=== PATIENT | female | born 1950 | race Caucasian/White ===

== ENCOUNTER → 2017-04-23 | Outpatient (REF) | payer OTHER ==
[~2017-04-23] MED LIST: AMIT8CAP4 PO; ASPI1TAB PO; ATEN25TA PO; BUPR1TAB17 PO; CALCIUM D3 PO; CLON0.5T PO; OMEP40CA2 PO; REST0.05 OP; VITA-112 PO; XYZA5TAB2 PO
[2017-04-23 18:45] LABS: PERCENT SATURATION 31.3 % (13.2-37.4)
== END ==
LOC: M LAB REF 16:25
PROVIDERS: ATTEND Internal Medicine
DX: R42 Dizziness and giddiness (principal)

== ENCOUNTER → 2017-08-26 | Outpatient (REF) | payer OTHER ==
[~2017-08-26] MED LIST changes: -BUPR1TAB17 PO; +BUPR1TAB53 PO
== END ==
LOC: M LAB REF 13:03
PROVIDERS: ATTEND Internal Medicine
DX: H16.209 Unspecified keratoconjunctivitis, unspecified eye (principal); G60.9 Hereditary and idiopathic neuropathy, unspecified

== ENCOUNTER → 2017-08-30 | Outpatient (CLI) | payer OTHER ==
[~2017-08-30] MED LIST changes: +METHACHOLINE KIT (J7674) INH ONE
--- NOTE | 2017-08-30 17:16 | PFTRPT ---
Tech: Jose Luis SHIRLEY RRT Age: 66 Sex: Female Race: Height: 65.00 Inches Weight: 144.00 Lbs BSA: 1.72 Diagnosis: R06.02 METHACHOLINE CHALLENGE REPORT: ORDERING PROVIDER: Symone Villegas DO DATE OF SERVICE: 08/30/17 INTERPRETATION: The study was of excellent technical quality. Under protocol, methacholine was administered. At a dose of 10 mg (63.875 CDUs), a 26% decline in the FEV1 was noted. The PC20 of 4.7 is significant. Flow rates returned to baseline post bronchodilator administration. IMPRESSION: Positive methacholine challenge study. MTDD
== END ==
LOC: M CARPUL 16:11
PROVIDERS: ATTEND Internal Medicine
DX: R06.02 Shortness of breath (principal)
CPT/HCPCS: 94070; J7674

== ENCOUNTER → 2017-09-07 | Outpatient (CLI) | payer OTHER ==
[~2017-09-07] MED LIST changes: -METHACHOLINE KIT (J7674) INH ONE
--- NOTE | 2017-09-07 16:17 | REP ---
LEFT KNEE, FIVE VIEWS: HISTORY: Pain. There is no acute fracture or dislocation. The joint spaces are normal in appearance. Impression: There is no acute fracture or dislocation. Signed by Virgil Wyman MD 09/07/2017 04:18 P
== END ==
LOC: M WUC 12:17
PROVIDERS: ATTEND Physician Assistant
DX: M25.569 Pain in unspecified knee (principal)

== ENCOUNTER 2018-11-15 20:11 | Emergency (ER) | payer MEDICARE, OTHER ==
[~2018-11-15] VITALS: Ht 165.1 cm; Wt 68.6 kg
[~2018-11-15 20:11] MED LIST changes: -CLON0.5T PO; +CLON0.5T8 PO
[2018-11-15] MEDS ORDERED: LABETALOL HCL 100 MG/20 ML VIAL IV STA (20:33)
[2018-11-15] MEDS ORDERED: NS 1,000 ML IV SCH (20:33)
[2018-11-15] MEDS ORDERED: hydroCHLOROthiazide 12.5 MG CAPSULE PO ONE (20:45)
[2018-11-15] MEDS ORDERED: ASPIRIN 81 MG CHEW TABLET PO ONE (20:45)
[2018-11-15 20:56] VITALS: BP 178/84
[2018-11-15 21:33] LABS: BASO % 0.6 % (0.0-1.0); EOS # 0.2 10^3/uL (0.0-0.50); EOS % 3.7 % (0.0-3.0); HEMATOCRIT 37.7 % (36.0-47.0); HEMOGLOBIN 11.8 g/dl (12.0-15.5); LYMPH % 31.7 % (24.0-44.0); MEAN CORPUSCULAR HEMOGLOBIN 28.6 pg (27.0-33.0); MEAN CORPUSCULAR HGB CONC 31.3 g/dl (32.0-36.5); MEAN CORPUSCULAR VOLUME 91.5 fl (80.0-96.0); MONO # 0.6 10^3/uL (0.0-0.8); MONO % 9.5 % (0.0-5.0); NEUTROPHILS # 3.4 10^3/uL (1.8-7.7); NEUTROPHILS % 54.3 % (36.0-66.0); PLATELET COUNT, AUTOMATED 323 10^3/uL (150-450); RED BLOOD COUNT 4.12 10^6/uL (4.00-5.40); WHITE BLOOD COUNT 6.2 10^3/uL (4.0-10.0)
[2018-11-15 21:47] LABS: INR 0.94; PROTHROMBIN TIME 12.7 SECONDS (12.1-14.4)
[2018-11-15 21:55] VITALS: BP 165/86
[2018-11-15 22:07] LABS: ALBUMIN 4.1 GM/DL (3.2-5.2); ALT/SGPT 25 U/L (12-78); BILIRUBIN,DIRECT < 0.1 MG/DL (0.0-0.2); BILIRUBIN,TOTAL 0.3 MG/DL (0.2-1.0); BLOOD UREA NITROGEN 13 MG/DL (7-18); CALCIUM LEVEL 8.6 MG/DL (8.8-10.2); CARBON DIOXIDE LEVEL 29 MEQ/L (21-32); CHLORIDE LEVEL 106 MEQ/L (98-107); CK-MB VALUE MASS < 1.0 NG/ML (<3.6); CPK CREATINE PHOSPHOKINASE 75 U/L (26-192); CREATININE FOR GFR 1.17 MG/DL (0.55-1.30); FREE T4 0.99 NG/DL (0.76-1.46); GLOMERULAR FILTRATION RATE 49.4 (>45); GLUCOSE, FASTING 92 MG/DL (70-100); MB/CK RELATIVE INDEX 1.33 (< OR =4); POTASSIUM SERUM 4.1 MEQ/L (3.5-5.1); SODIUM LEVEL 143 MEQ/L (136-145); TOTAL PROTEIN 7.6 GM/DL (6.4-8.2); TROPONIN I < 0.02 NG/ML (< 0.10)
[2018-11-15] MEDS ORDERED: HYDR12.55 PO (22:33)
--- NOTE | 2018-11-16 03:46 | REP ---
Clinical: Acute chest pain . Comparison: 01/21/2014 . Findings: The mediastinum and cardiac silhouette are stable and within normal limits for portable technique. The lung beckford are clear without acute consolidation, effusion, or pneumothorax. Skeletal structures are intact. Impression: No acute cardiopulmonary process appreciated. Electronically Signed by James Bowman MD 11/16/2018 03:37 A
--- NOTE | 2018-11-16 10:27 | ECGEPIP ---
Stationary ECG Study [facility] - ED Test Date: 2018-11-15 Pat Name: JASMINE BOATENG Department: Room: - Gender: F Avian Keeper: : 1950 Requested By: IESHA MURPHY Order Number: [id number] Reading MD: Janay Hong Measurements Intervals [place] Rate: 62 P: 43 [place]: 222 QRS: -11 QRSD: 93 T: 47 QT: 429 QTc: 437 Interpretive Statements SINUS RHYTHM WITH MARKED SINUS ARRHYTHMIA WITH FIRST DEGREE AV BLOCK BASELINE ARTIFACT LIMITS INTERPRETATION SEPTAL MYOCARDIAL INFARCTION, PROBABLY OLD Electronically Signed On 11-16-2018 10:26:53 EST by Janay Hong
== END 2018-11-15 22:40 | disposition home or self-care (01) ==
LOC: M ED 20:11
DX: I49.3 Ventricular premature depolarization (principal); I10 Essential (primary) hypertension; I44.0 Atrioventricular block, first degree; G43.909 Migraine, unspecified, not intractable, without status migrainosus; J45.909 Unspecified asthma, uncomplicated; Z82.49 Family history of ischemic heart disease and other diseases of the circulatory system; Z79.82 Long term (current) use of aspirin; Z79.899 Other long term (current) drug therapy; Z88.1 Allergy status to other antibiotic agents

== ENCOUNTER → 2018-12-19 | Outpatient (REF) | payer MEDICARE, OTHER ==
[~2018-12-19] MED LIST changes: +HYDR12.55 PO
[2018-12-20 11:38] LABS: AMORPHOUS SEDIMENT MODERATE (NEGATIVE); BACTERIA, URINE AUTO 1+ (NEGATIVE); CALCIUM OXALATE CRYSTALS SMALL; GRANULAR CAST, URINE AUTO 3 /LPF; MUCUS, URINE SMALL (NEGATIVE); RBC, URINE AUTO 1 /HPF (0-3); SQUAMOUS EPITHELIAL CELL UR AU 4 /HPF (0-6); WBC, URINE AUTO 16 /HPF (0-3)
== END ==
LOC: M SMT 10:52
PROVIDERS: ATTEND Specialist
DX: N93.9 Abnormal uterine and vaginal bleeding, unspecified (principal)
CPT/HCPCS: 81015; 87086; G0463

== ENCOUNTER → 2019-05-23 | Outpatient (REF) | payer OTHER, MEDICARE ==
[~2019-05-23] MED LIST changes: -ASPI1TAB PO; +ASPI81TA26 PO
[2019-05-23 16:30] LABS: INR 0.96; PARTIAL THROMBOPLASTIN TIME 28.6 SECONDS (25.0-38.4); PROTHROMBIN TIME 12.5 SECONDS (11.8-14.0)
== END ==
LOC: M LABDRAW1 15:29
PROVIDERS: ATTEND Physician Assistant
DX: Z01.812 Encounter for preprocedural laboratory examination (principal)

== ENCOUNTER → 2020-06-04 | Outpatient (REF) | payer MEDICARE, OTHER ==
[~2020-06-04] MED LIST changes: +B-650TAB2 PO; +BISO10TA14 PO; +BUPR-69 PO; +BUPR1TAB52 PO; +BUSP15TA47 PO; +CALCIUM/VITAMIN D PO; +CLON0.5T2 PO; -CLON0.5T8 PO; +D31000TA2 PO; +LEVOTAB10 PO; +NORV5TAB PO; -OMEP40CA2 PO; +OMEP40CA97 PO; +SYST0.4D2 OU
[2020-06-04 16:41] LABS: PERCENT SATURATION 20.8 % (13.2-45.0)
== END ==
LOC: M LAB REF 12:19
PROVIDERS: ATTEND Internal Medicine
DX: D64.9 Anemia, unspecified (principal)

== ENCOUNTER 2020-08-02 22:17 | Inpatient (IN) | payer MEDICARE, OTHER ==
[~2020-08-02] VITALS: Ht 165.1 cm; Wt 67.5 kg
[~2020-08-02 22:17] MED LIST changes: -B-650TAB2 PO; -BISO10TA14 PO; -BUPR-69 PO; -BUPR1TAB52 PO; -BUSP15TA47 PO; -CALCIUM/VITAMIN D PO; -D31000TA2 PO; -LEVOTAB10 PO; -NORV5TAB PO; -SYST0.4D2 OU
[2020-08-02] MEDS ORDERED: LABETALOL 100MG/20ML VIAL IV STA ×2 (22:52→23:51)
[2020-08-02] MEDS ORDERED: BUSP15TA47 PO (22:59)
[2020-08-02 23:31] LABS: BASO % 0.3 % (0.0-1.0); EOS # 0.1 10^3/uL (0.0-0.5); EOS % 2.1 % (0.0-3.0); HEMATOCRIT 35.2 % (36.0-47.0); HEMOGLOBIN 11.1 g/dl (12.0-15.5); LYMPH % 34.1 % (24.0-44.0); MEAN CORPUSCULAR HEMOGLOBIN 29.7 pg (27.0-33.0); MEAN CORPUSCULAR HGB CONC 31.5 g/dl (32.0-36.5); MEAN CORPUSCULAR VOLUME 94.1 fl (80.0-96.0); MONO # 0.6 10^3/uL (0.0-0.8); MONO % 9.7 % (0.0-5.0); NEUTROPHILS # 3.1 10^3/uL (1.5-8.5); NEUTROPHILS % 53.6 % (36.0-66.0); PLATELET COUNT, AUTOMATED 291 10^3/uL (150-450); RED BLOOD COUNT 3.74 10^6/uL (4.00-5.40); WHITE BLOOD COUNT 5.8 10^3/uL (4.0-10.0)
--- NOTE | 2020-08-02 23:47 | REPVR ---
PROCEDURE INFORMATION: Exam: CT Head Without Contrast Exam date and time: 08/02/2020 10:52 PM Age: 69 years old Clinical indication: Pain; Headache not specified; Additional info: HTN headache TECHNIQUE: Imaging protocol: Computed tomography of the head without contrast. Radiation optimization: All CT scans at this facility use at least one of these dose optimization techniques: automated exposure control; mA and/or kV adjustment per patient size (includes targeted exams where dose is matched to clinical indication); or iterative reconstruction. COMPARISON: CT Head without contrast 06/06/2016 8:29 AM FINDINGS: Brain: Normal. No hemorrhage. Unremarkable white matter. No mass effect. Ventricles: Normal. No ventriculomegaly. Bones/joints: Unremarkable. No acute fracture. Sinuses: Visualized sinuses are unremarkable. No fluid levels. Mastoid air cells: Visualized mastoid air cells are well aerated. Soft tissues: Unremarkable. IMPRESSION: Negative noncontrast head CT without change from 06/06/2016. Electronically signed by: Romie Garsia On 08/02/2020 23:47:32 PM
[2020-08-02 23:52] LABS: INR 0.9; PROTHROMBIN TIME 12.4 SECONDS (11.8-14.0)
[2020-08-03 00:04] LABS: ALBUMIN 3.8 GM/DL (3.2-5.2); ALT/SGPT 22 U/L (12-78); BILIRUBIN,DIRECT < 0.1 MG/DL (0.0-0.2); BILIRUBIN,TOTAL 0.3 MG/DL (0.2-1.0); BLOOD UREA NITROGEN 19 MG/DL (7-18); CALCIUM LEVEL 9.1 MG/DL (8.8-10.2); CARBON DIOXIDE LEVEL 31 MEQ/L (21-32); CHLORIDE LEVEL 107 MEQ/L (98-107); CK-MB VALUE MASS 1.5 NG/ML (<3.6); CPK CREATINE PHOSPHOKINASE 76 U/L (26-192); CREATININE FOR GFR 1.34 MG/DL (0.55-1.30); FREE T4 0.92 NG/DL (0.76-1.46); GLUCOSE, FASTING 114 MG/DL (70-100); MB/CK RELATIVE INDEX 1.97 (< OR =4); POTASSIUM SERUM 3.8 MEQ/L (3.5-5.1); SODIUM LEVEL 142 MEQ/L (136-145); TOTAL PROTEIN 7.1 GM/DL (6.4-8.2); TROPONIN I < 0.02 NG/ML (< 0.10)
[2020-08-03] MEDS ORDERED: LABETALOL 100MG/20ML VIAL IV STA (00:26)
[2020-08-03] MEDS ORDERED: LABETALOL 100 MG TAB PO ONE (00:30)
--- NOTE | 2020-08-03 00:31 | REPVR ---
PROCEDURE INFORMATION: Exam: XR Chest, 2 Views Exam date and time: 08/02/2020 12:24 AM Age: 69 years old Clinical indication: Other: Hypertension TECHNIQUE: Imaging protocol: XR of the chest Views: 2 views. COMPARISON: CR PORTABLE CHEST X-RAY 11/15/2018 9:18 PM FINDINGS: Lungs: Unremarkable. No consolidation. Pleural space: Unremarkable. No pleural effusion. No pneumothorax. Heart/Mediastinum: Unremarkable. No cardiomegaly. Bones/joints: Unremarkable. IMPRESSION: Negative chest without significant change from 11/15/2018. Electronically signed by: Romie Garsia On 08/03/2020 00:30:53 AM
[2020-08-03 00:49] VITALS: BP 198/92
[2020-08-03] MEDS ORDERED: MAALOX 30 ML SUSP *UDC PO PRN (01:30)
[2020-08-03] MEDS ORDERED: ACETAMINOPHEN TAB 650MG DOSE (2X325MG) PO PRN (01:30)
[2020-08-03] MEDS ORDERED: niCARdipine IV 40 MG in IV 1 EA IV SCH (01:30)
[2020-08-03] MEDS ORDERED: MOM 30ML SUSPENSION UDC PO PRN (01:30)
[2020-08-03] MEDS ORDERED: BUPR-69 PO (01:52)
[2020-08-03] MEDS ORDERED: BISO10TA14 PO (01:52)
[2020-08-03] MEDS ORDERED: CALCIUM/VITAMIN D PO (01:52)
[2020-08-03] MEDS ORDERED: SYST0.4D2 OU (01:52)
[2020-08-03] MEDS ORDERED: LEVOTAB10 PO (01:52)
[2020-08-03] MEDS ORDERED: B-650TAB2 PO (01:52)
[2020-08-03] MEDS ORDERED: D31000TA2 PO (01:55)
[2020-08-03] MEDS ORDERED: BUPR1TAB52 PO (01:57)
[2020-08-03] MEDS ORDERED: LACRILUBE (AKWA TEARS) OPHTH OINT 3.5 GM OU PRN (02:15)
[2020-08-03] MEDS ORDERED: AZELASTINE 137MCG NASAL SPY 30 ML (ASTELIN) PRN (02:15)
--- NOTE | 2020-08-03 03:43 | HPEPDOC ---
General Date of Admission Aug 03, 2020 at 01:17 Date of Service: Aug 03, 2020 Chief Complaint elevated blood pressure Timing/Duration: Day(s) (4-5) Associated Symptoms: Other (Feeling warm and right thigh numbness) History of Present Illness Patient is a 69 year female with PMH of HTN presented to [facility] ER d/t 4-5 days of HTN reported to be around 190s/90s. She has a hx of HTN that she reported to be usually around 150s/70-90s. She went to her PCP today and was started on Lortartan today and had increased Losartan dose today, deniess stopping any anti -HTN meds recently. In the ER, she was noted to have BP 243/148 with SBP continues to be >200 despite receiving several IV labetalol in ER. Patient reported that she has been feeling sweaty for days and reported feeling hot flashes, denies any Chest pain, palpitation, dyspnea. Denies any facial droo ping, dysphagia, or extremity weakness. She reported oophrectomy with uterus removal years ago. Reported 9lb weight loss over the past year but no sudden weight loss that is out of proportion. Reported right thigh numbness which she is unable to report the duration. Patient reported no imaging on her kidney for her BP workup prior. Home Medications Scheduled Amlodipine Besylate (Norvasc) 5 Mg Tablet, 1 TAB PO DAILY Bisoprolol Fumarate (Bisoprolol Fumarate) 10 Mg Tablet, 10 MG PO DAILY, (Reported) Bupropion HCl (Bupropion HCl Sr) 100 Mg Tab.sr.12h, 100 MG PO BID, (Reported) Buspirone HCl (Buspirone HCl) 15 Mg Tablet, 15 MG PO BID, (Reported) Cholecalciferol (Vitamin D3) (Vitamin D3) 1,000 Unit Tablet, 1,000 UNITS PO DAILY, (Reported) Clonazepam (Clonazepam) 0.5 Mg Tab, 0.5 MG PO DAILY, (Reported) USES PRN FOR SLEEP Omeprazole (Omeprazole) 40 Mg Cap, 40 MG PO DAILY, (Reported) Propylene Glycol/Peg 400 (Systane Gel Eye Drops) 10 Ml Drops.gel, 1 CUATE OU QPM, (Reported) Pyridoxine HCl (Vitamin B6) (Vitamin B-6) 50 Mg Tablet, 50 MG PO DAILY, (Reported) UNSURE OF DOSAGE [Calcium/Vitamin D] , 1 TAB PO DAILY, (Reported) UNSURE OF DOSAGE Scheduled PRN Levocetirizine Dihydrochloride (Levocetirizine Dihydrochloride) 5 Mg Tablet, 5 MG PO QPM PRN for CONGESTION, (Reported) Allergies Coded Allergies: azithromycin (Unverified Allergy, Unknown, 08/02/20) cyclobenzaprine (Unverified Allergy, Unknown, 08/02/20) Past Medical History Medical History Seasonal allergies History of migraine headaches HSV HTN Hematuria Surgical History HUSSEIN/BSO Family History Father:CA prostate, HTN Mother: HTN Social History * Smoker: Denies A-FIB/CHADSVASC A-FIB History Current/History of A-Fib/PAF?: No Review of Systems Constitutional: Reports: Weight Loss (slow weight loss reported to be proportional to diet change), Other (Pos for hot flashes and sweating. Denies headache); Denies: Chills, Fever Pulmonary: Denies: Dyspnea Cardiovascular: Denies: Chest Pain, Palpitations Gastrointestinal: Denies: Vomiting, Abdominal Pain Neurological: Reports: Numbness (right thigh numbness); Denies: Weakness, Incoordination, Change in speech, Confusion Psych: Reports: Anxiety Physical Examination General Exam: Positive: Alert, Cooperative, No Acute Distress; Negative: Mild Distress Eye Exam: Positive: Conjunctiva & lids normal, EOMI, Other Eye Symptoms (Bilateral pupil round and equal); Negative: Sclera icteric ENT Exam: Positive: Atraumatic, Mucous membr. moist/pink, Pharynx Normal, To ngue Midline, Nares Patent Neck Exam: Positive: Supple Chest Exam: Positive: Clear to auscultation, Normal air movement; Negative: Rales, Rhonchi, Wheezing Heart Exam: Positive: Rate Normal, Regular Rhythm, Normal S1, Normal S2; Negative: Murmurs Abdomen Exam: Positive: Normal bowel sounds, Soft; Negative: Tenderness Extremity Exam: Negative: Edema, Swelling Skin Exam: Positive: Nl turgor and temperature Neuro Exam: Positive: Normal Speech, Strength at 5/5 X4 ext, Normal Tone, Sensation Intact, Cranial Nerves 3-12 NL, Other (No numbness or tingling elicited by touch) Psych Exam: Positive: Mental status NL, Anxiety (mild), Memory Intact, Oriented x 3 Vital Signs Vital Signs Date Time Temp Pulse Resp B/P (MAP) Pulse Ox O2 Delivery O2 Flow Rate FiO2 08/03/20 03:00 86 12 148/78 (101) 99 Room Air 08/02/20 22:18 98.3 Laboratory Data Labs 24H Laboratory Tests 2 08/02/20 23:08: Immature Granulocyte % (Auto) 0.2, Neutrophils (%) (Auto) 53.6, Lymphocytes (%) (Auto) 34.1, Monocytes (%) (Auto) 9.7H, Eosinophils (%) (Auto) 2.1, Basophils (%) (Auto) 0.3, Neutrophils # (Auto) 3.1, Lymphocytes # (Auto) 2.0, Monocytes # (Auto) 0.6, Eosinophils # (Auto) 0.1, Basophils # (Auto) 0.0, Nucleated Red Blood Cells % (auto) 0.0, Prothrombin Time 12.4, Prothromb Time International Ratio 0.90, Activated Partial Thromboplast Time 28.0, Anion Gap 4L, Glomerular Filtration Rate 42.0L, Calcium Level 9.1, Total Bilirubin 0.3, Direct Bilirubin < 0.1, Aspartate Amino Transf (AST/SGOT) 15, Alanine Aminotransferase (ALT/SGPT) 22, Alkaline Phosphatase 99, Total Creatine Kinase 76, Creatine Kinase MB 1.5, Creatine Kinase MB Relative Index 1.97, Troponin I < 0.02, Total Protein 7.1, Albumin 3.8, Albumin/Globulin Ratio 1.2, Thyroid Stimulating Hormone (TSH) 2.540, Free Thyroxine 0.92 CBC/BMP Laboratory Tests 08/02/20 23:08 Assessment/Plan 1. Hypertensive emergency with end organ damage: NANO, r/o stroke. Right thigh numbness. Head CT and CXR showed no acute changes. MRI/MRA STAT ordered. If ischemic stroke is present, need to allow permissive HTN>220/120 for at 24 hrs. CN2-12 intact. Strength+5/5 in all 4 extremities. Neuro checks Q4H, vital signs. Pt will be admitted to ICU for close observation IV nicardipine drip. Fall/seizure precaution. Renal doppler US to investigate underlying cause of hypertension. 2. Anemia. Hg=11.1, normocytic. Recent iron studies from 05/2020 showed no gross abnormalities. B12 from 05/2020 was wnl. RBC folate was ordered. 3. NANO, likely 2/2 to hypertensive emergency. COnt to f/u BMP. BP control. 4. Depression/anxiety. Hold home buspirone/buproprion/clonzepam for now. Seizure precaution 5. GERD. Cont home med Omeprazole. DVT prophylaxis: lovenox SC Plan / VTE VTE Prophylaxis Ordered?: Yes GME ATTESTATION GME ATTESTATION My faculty preceptor for this patient encounter was physically present during the encounter and was fully available. All aspects of the patient interview, examination, medical decision making process, and medical care plan development were reviewed and approved by the faculty preceptor. The faculty preceptor is aware and concurs with the plan as stated in the body of this note and will attest to such by his/her cosignature. ATTENDING NOTE is a 69 yr old w a hx of Asthma & HTN who came to the hospital bc her SBP was >200 despite having losartan added to her atenolol yesterday. She is c/o a REINOSO but denies any other symptoms; she will be admitted for management of HTN Urgency. rest per 's H&P above ALEXSANDRA ALFORD DO Aug 03, 2020 03:42 JEN MANCILLA MD Aug 03, 2020 06:06
--- NOTE | 2020-08-03 05:31 | REPVR ---
PROCEDURE INFORMATION: Exam: MR Head Without Contrast Exam date and time: 08/03/2020 1:41 AM Age: 69 years old Clinical indication: Numbness / parasthesia; Right; Patient HX: Headache, high BP; Additional info: Sbp>200, right thigh tingling TECHNIQUE: Imaging protocol: MR of the head without contrast. COMPARISON: CT Head without contrast 08/02/2020 11:22 PM FINDINGS: Brain: There is a nonspecific tiny focus of white matter T2 hyperintensity in the left frontal lobe measuring 3 mm. No focal abnormality seen in the gradient echo to suggest intracranial bleed. No abnormal restricted diffusion seen to suggest acute infarcts. Ventricles: Normal. No ventriculomegaly. Bones/joints: Unremarkable. Sinuses: Normal as visualized. No acute sinusitis. Mastoid air cells: Normal as visualized. No mastoid effusion. Orbits: Unremarkable. Soft tissues: Unremarkable. IMPRESSION: 1. No MRI evidence of acute infarct. 2. Nonspecific single 3 mm focus of T2 white matter hyperintensity in the left frontal lobe with no restricted diffusion could represent focus of white matter demyelination. Electronically signed by: Jl Malin On 08/03/2020 05:30:46 AM
--- NOTE | 2020-08-03 05:38 | REPVR ---
PROCEDURE INFORMATION: Exam: MR Angiogram Head Without Contrast, Arteries Exam date and time: 08/03/2020 1:41 AM Age: 69 years old Clinical indication: Numbness; Patient HX: Headache, high BP; Additional info: Sbp>200, right thigh tingling TECHNIQUE: Imaging protocol: MR angiogram head without contrast. Exam focused on the arteries. COMPARISON: CT Head without contrast 08/02/2020 11:22 PM FINDINGS: ANTERIOR CIRCULATION: Right internal carotid artery: There is apparent narrowing of the distal cavernous right ICA at the genu with probably 50-69% stenosis. Right middle cerebral artery: No occlusion or significant stenosis. No aneurysm. 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 Left internal carotid artery: There is apparent narrowing of the left carotid artery in the distal petrous portion just proximal to the cavernous portion in the range of 50-69%. Left middle cerebral artery: No occlusion or significant stenosis. No aneurysm. Left anterior cerebral artery: No occlusion or significant stenosis. No aneurysm. POSTERIOR CIRCULATION: Right vertebral artery: No occlusion or significant stenosis. No aneurysm. Left vertebral artery: No occlusion or significant stenosis. No aneurysm. Basilar artery: No occlusion or significant stenosis. No aneurysm. Right posterior cerebral artery: There is stenosis in the P2 segment of the right SATURATOR in the range of 50-69%. Left posterior cerebral artery: No occlusion or significant stenosis. No aneurysm. IMPRESSION: 1. No MR evidence of occlusive disease in the anterior or posterior circulation. 2. Apparent 50-69% stenosis in the distal petrous left ICA, genu of the right ICA and P2 segment of the right SATURATOR. Electronically signed by: Jl Malin On 08/03/2020 05:38:14 AM
[2020-08-03 08:02] LABS: HEMATOCRIT 32.6 % (36.0-47.0); HEMOGLOBIN 10.4 g/dl (12.0-15.5); MEAN CORPUSCULAR HEMOGLOBIN 29.5 pg (27.0-33.0); MEAN CORPUSCULAR HGB CONC 31.9 g/dl (32.0-36.5); MEAN CORPUSCULAR VOLUME 92.4 fl (80.0-96.0); PLATELET COUNT, AUTOMATED 278 10^3/uL (150-450); RED BLOOD COUNT 3.53 10^6/uL (4.00-5.40); WHITE BLOOD COUNT 6.6 10^3/uL (4.0-10.0)
[2020-08-03 08:21] LABS: HEMATOCRIT 32.6 % (36.0-47.0)
[2020-08-03 08:38] LABS: CALCIUM LEVEL 9.2 MG/DL (8.8-10.2); CREATININE FOR GFR 1.12 MG/DL (0.55-1.30); GLOMERULAR FILTRATION RATE 51.7 (>45); MAGNESIUM LEVEL 2.2 MG/DL (1.8-2.4); POTASSIUM SERUM 4.2 MEQ/L (3.5-5.1)
[2020-08-03] MEDS ORDERED: PYRIDOXINE 50 MG TAB PO SCH (09:00)
[2020-08-03] MEDS ORDERED: bisoproloL fumarate 10 MG TAB PO SCH (09:00)
[2020-08-03] MEDS ORDERED: VITAMIN D 1,000 INTERNATIONAL UNITS TABLET PO SCH (09:00)
[2020-08-03] MEDS ORDERED: CALCIUM/VITAMIN D 500 MG TAB PO SCH (09:00)
[2020-08-03] MEDS ORDERED: OMEPRAZOLE 20 MG CAP PO SCH (09:00)
[2020-08-03] MEDS ORDERED: busPIRone 5 MG TAB PO SCH (09:00)
[2020-08-03] MEDS ORDERED: CHLORTHALIDONE 12.5MG PER 1/2 TABLET PO SCH (09:00)
[2020-08-03] MEDS ORDERED: ENOXAPARIN 40MG/0.4ML SYRINGE (J1650 PER 10MG) SC SCH (09:00)
[2020-08-03] MEDS ORDERED: buPROPion (WELLBUTRIN SR) 100 MG SR TAB PO SCH (09:00)
[2020-08-03 10:00] VITALS: BP 171/93
[2020-08-03] MEDS ORDERED: clonazePAM 0.5 MG TAB PO PRN (10:00)
[2020-08-03 10:20] VITALS: BP 156/83
[2020-08-03] MEDS ORDERED: FLUBLOK(EGG FREE)(QUAD)INFLUENZA VACC 0.5ML SYRINGE 18YRS & OLDER IM PRN (11:00)
[2020-08-03 12:00] VITALS: BP 158/74
[2020-08-03] MEDS ORDERED: NORV5TAB PO (13:18)
[2020-08-04] MEDS ORDERED: bisoproloL fumarate 10 MG TAB PO SCH (09:00)
--- NOTE | 2020-08-12 10:21 | ECGEPIP ---
[facility] - ED Test Date: 2020-08-02 Pat Name: JASMINE BOATENG Department: Room: 11-29 Gender: Female Telecommunications Analyst: vamsi : 1950 Requested By: HUMPHREY Logan Order Number: [id number] Reading MD: Manish Marinelli-Arcenio Measurements Intervals [place] Rate: 82 P: 57 CT: 206 QRS: 5 QRSD: 98 T: 53 QT: 410 QTc: 481 Interpretive Statements SINUS RHYTHM WITH OCCASIONAL VENTRICULAR PREMATURE COMPLEXES WITH OCCASIONAL SUPRAVENTRICULAR PREMATURE COMPLEXES BORDERLINE ECG DELAYED R WAVE PROGRESSION NO PRIOR DUE TO DOWNTIME SEE SCANNED DOWNTIME REPORT
== END 2020-08-03 15:13 | disposition home or self-care (01) | DRG 305 ==
LOC: M ED 22:17 → M ED INP 08-03 01:17 → ENRESERV 08-03 02:16 → M ICU 08-03 09:35
PROVIDERS: ADMIT Internal Medicine; ATTEND Internal Medicine
DX: I16.1 Hypertensive emergency (principal); N17.9 Acute kidney failure, unspecified; F32.9 Major depressive disorder, single episode, unspecified; F41.9 Anxiety disorder, unspecified; G43.909 Migraine, unspecified, not intractable, without status migrainosus; J30.2 Other seasonal allergic rhinitis; K21.9 Gastro-esophageal reflux disease without esophagitis; Z79.899 Other long term (current) drug therapy; Z88.1 Allergy status to other antibiotic agents; Z88.8 Allergy status to other drugs, medicaments and biological substances

== ENCOUNTER → 2020-11-12 | Outpatient (REF) | payer MEDICARE, OTHER ==
[~2020-11-12] MED LIST changes: +B-650TAB2 PO; +BISO10TA14 PO; +BUPR-69 PO; +BUPR1TAB52 PO; +BUSP15TA47 PO; +CALCIUM/VITAMIN D PO; +D31000TA2 PO; +LEVOTAB10 PO; +NORV5TAB PO; +SYST0.4D2 OU
[2020-11-12 18:36] LABS: PERCENT SATURATION 23.7 % (13.2-45.0)
== END ==
LOC: M LAB REF 16:23
PROVIDERS: ATTEND Internal Medicine
DX: D64.9 Anemia, unspecified (principal)

== ENCOUNTER → 2021-01-09 | Outpatient (CLI) | payer MEDICARE, OTHER ==
[2021-01-09 14:27] LABS: BASO % 0.6 % (0.0-1.0); EOS # 0.1 10^3/uL (0.0-0.5); HEMATOCRIT 34.7 % (36.0-47.0); HEMOGLOBIN 10.7 g/dl (12.0-15.5); LYMPH # 1.2 10^3/uL (1.5-5.0); LYMPH % 24.6 % (24.0-44.0); MEAN CORPUSCULAR HGB CONC 30.8 g/dl (32.0-36.5); MONO # 0.4 10^3/uL (0.0-0.8); MONO % 8.6 % (0.0-5.0); NEUTROPHILS # 3.2 10^3/uL (1.5-8.5); PLATELET COUNT, AUTOMATED 276 10^3/uL (150-450); RED BLOOD COUNT 3.69 10^6/uL (4.00-5.40)
[2021-01-09 15:12] LABS: BILIRUBIN,TOTAL 0.5 MG/DL (0.2-1.0); CALCIUM LEVEL 9.1 MG/DL (8.8-10.2); CREATININE FOR GFR 1.51 MG/DL (0.55-1.30); FREE T4 0.96 NG/DL (0.76-1.46); GLOMERULAR FILTRATION RATE 36.5 (>45); POTASSIUM SERUM 4.4 MEQ/L (3.5-5.1); THYROID STIMULATING HORMONE 1.08 uIU/ML (0.358-3.740); TOTAL PROTEIN 7.1 GM/DL (6.4-8.2)
== END ==
LOC: M WUC 11:48
PROVIDERS: ATTEND Physician Assistant
DX: R42 Dizziness and giddiness (principal); R00.2 Palpitations

== ENCOUNTER → 2021-01-29 | Outpatient (REF) | payer MEDICARE, OTHER ==
[~2021-01-29] MED LIST changes: +ATOR1TAB21; +FERR32TA; +FLUT22IN INH; +IRBE75TA4; +MECL1TAB31 PO; +NITR100C2; +physical therapy
== END ==
LOC: M WUC 15:42
PROVIDERS: ATTEND Physician Assistant
DX: R30.0 Dysuria (principal)

== ENCOUNTER 2021-02-03 11:09 | Emergency (ER) | payer MEDICARE, OTHER ==
[~2021-02-03] VITALS: Ht 165.1 cm; Wt 65.9 kg
[~2021-02-03 11:09] MED LIST changes: -ATOR1TAB21; -FERR32TA; -FLUT22IN INH; -IRBE75TA4; -MECL1TAB31 PO; -NITR100C2; -physical therapy
[2021-02-03] MEDS ORDERED: FERR32TA (11:43)
[2021-02-03] MEDS ORDERED: ATOR1TAB21 (11:43)
[2021-02-03] MEDS ORDERED: IRBE75TA4 (11:43)
[2021-02-03] MEDS ORDERED: FLUT22IN INH (11:43)
[2021-02-03] MEDS ORDERED: NITR100C2 (11:43)
--- NOTE | 2021-02-03 11:59 | REP ---
INDICATION: dizzy COMPARISON: 08/02/2020 TECHNIQUE: Axial noncontrast images from the skull base to the thoracic inlet with coronal reformations. This CT examination was performed using the following dose reduction techniques: Automated exposure control, adjustment of mA and/or kv according to the patient's size, and use of iterative reconstruction technique. FINDINGS: Age-related atrophy and microvascular ischemic changes are appreciated. The ventricles and sulci are symmetric. Rg-white differentiation is maintained. There is no evidence for acute intracranial hemorrhage, mass/mass effect, pathology or infarction. No extra-axial fluid collection. Calvarium is intact. Paranasal sinuses and mastoid air cells are clear. IMPRESSION: Age related atrophy and microvascular ischemic changes. No acute intracranial hemorrhage, infarction, or mass/mass effect. <Electronically signed by James Bowman > 02/03/21 [id number]
[2021-02-03 12:14] LABS: BASO % 0.6 % (0.0-1.0); EOS % 0.8 % (0.0-3.0); HEMOGLOBIN 11.1 g/dl (12.0-15.5); LYMPH # 0.5 10^3/uL (1.5-5.0); LYMPH % 9.4 % (24.0-44.0); MEAN CORPUSCULAR HEMOGLOBIN 28.5 pg (27.0-33.0); MEAN CORPUSCULAR HGB CONC 30.8 g/dl (32.0-36.5); MEAN CORPUSCULAR VOLUME 92.5 fl (80.0-96.0); MONO # 0.6 10^3/uL (0.0-0.8); MONO % 11.3 % (2.0-8.0); NEUTROPHILS # 4.1 10^3/uL (1.5-8.5); NEUTROPHILS % 77.3 % (36.0-66.0); PLATELET COUNT, AUTOMATED 237 10^3/uL (150-450); RED BLOOD COUNT 3.89 10^6/uL (4.00-5.40); WHITE BLOOD COUNT 5.3 10^3/uL (4.0-10.0)
[2021-02-03 12:41] LABS: ALBUMIN 3.4 GM/DL (3.2-5.2); ALT/SGPT 170 U/L (12-78); BILIRUBIN,TOTAL 1.6 MG/DL (0.2-1.0); BLOOD UREA NITROGEN 14 MG/DL (7-18); CALCIUM LEVEL 9.5 MG/DL (8.8-10.2); CARBON DIOXIDE LEVEL 30 MEQ/L (21-32); CHLORIDE LEVEL 107 MEQ/L (98-107); CREATININE FOR GFR 1.55 MG/DL (0.55-1.30); GLOMERULAR FILTRATION RATE 35.4 (>45); GLUCOSE, FASTING 132 MG/DL (70-100); POTASSIUM SERUM 3.8 MEQ/L (3.5-5.1); SODIUM LEVEL 141 MEQ/L (136-145); TOTAL PROTEIN 7.2 GM/DL (6.4-8.2)
[2021-02-03] MEDS ORDERED: MECL1TAB31 PO (13:53)
[2021-02-03] MEDS ORDERED: physical therapy (13:54)
[2021-02-03] MEDS ORDERED: ACETAMINOPHEN 500 MG TAB PO ONE (14:05)
[2021-02-03 14:09] VITALS: BP 142/83
[2021-02-03 15:02] LABS: HEPATITIS B SURFACE ANTIGEN NEGATIVE (NEGATIVE)
[2021-02-03 15:28] LABS: HEPATITIS B CORE ANTIBODY IGM NEGATIVE (NEGATIVE); HEPATITIS C VIRUS ABY INDEX < 0.0 INDEX (<0.8)
[2021-02-03 15:30] LABS: HEPATITIS A ANTIBODY IGM NEGATIVE (NEGATIVE)
--- NOTE | 2021-02-03 16:03 | ECGEPIP ---
[facility] - ED Test Date: 2021-02-03 Pat Name: JASMINE BOATENG Department: Room: - Gender: Female Runner Man: GABRIELLE : 1950 Requested By: Janay Hong Order Number: [id number] Reading MD: Everton Villalobos Measurements Intervals [place] Rate: 81 P: 64 [place]: 228 QRS: -3 QRSD: 74 T: 67 QT: 382 QTc: 443 Interpretive Statements Sinus rhythm with 1st degree AV block with premature atrial complexes POOR R WAVE PROGRESSION BASELINE ARTIFACT AFFECTS INTERPRETATION SIMILAR TO 08/02/20 Electronically Signed on 02-03-2021 16:03:26 EST by Everton Villalobos
== END 2021-02-03 14:20 | disposition home or self-care (01) ==
LOC: M ED 11:09
DX: H81.10 Benign paroxysmal vertigo, unspecified ear (principal); I10 Essential (primary) hypertension; G43.909 Migraine, unspecified, not intractable, without status migrainosus; Z79.899 Other long term (current) drug therapy; Z88.1 Allergy status to other antibiotic agents; Z88.8 Allergy status to other drugs, medicaments and biological substances

== ENCOUNTER → 2021-03-07 | Outpatient (CLI) | payer MEDICARE, OTHER ==
[~2021-03-07] MED LIST changes: +ATOR1TAB21; +FERR32TA; +FLUT22IN INH; +IRBE75TA4; +MECL1TAB31 PO; +NITR100C2; +physical therapy
--- NOTE | 2021-03-07 08:35 | REP ---
INDICATION: ELEVATED LFT'S. COMPARISON: 02/10/2008. TECHNIQUE: Abdominal right upper quadrant ultrasound. FINDINGS: There are multiple gallbladder calculi measuring up to 1.5 cm. There are gallbladder calculi on the comparison study. There is gallbladder wall thickening measuring up to 4 mm. This could represent fibrosis or edema. There is no pericholecystic fluid. There is no intrahepatic or extrahepatic biliary duct dilatation. The common duct measures 5 mm in diameter. The liver is normal size measuring 15 cm craniocaudad in the midclavicular line. The hepatic parenchyma is homogeneous and otherwise unremarkable. The visualized areas of the pancreas are unremarkable. Portions of the pancreas are obscured. The right kidney measures 9.2 x 3.9 x 3.8 cm and is in the low normal size range. There is no right renal calculus, hydronephrosis, solid mass or cystic mass. There is no right upper quadrant free fluid. IMPRESSION: Cholelithiasis. Gallbladder wall thickening, fibrosis versus edema. No pericholecystic fluid. No biliary duct dilatation. <Electronically signed by Murphy Jain > 03/07/21 0831
== END ==
LOC: M RAD 06:33
PROVIDERS: ATTEND Internal Medicine
DX: R74.8 Abnormal levels of other serum enzymes (principal)

== ENCOUNTER 2021-03-26 15:58 | Inpatient (IN) | payer MEDICARE, OTHER ==
[~2021-03-26] VITALS: Ht 165.1 cm; Wt 64.9 kg
[~2021-03-26 15:58] MED LIST changes: -ATOR1TAB21; +ATOR1TAB21 PO; -FERR32TA; +FERR32TA PO; -IRBE75TA4; +IRBE75TA4 PO
[2021-03-26] MEDS ORDERED: BUSP10TA PO (16:15)
[2021-03-26] MEDS ORDERED: bisoproloL fumarate 10 MG TAB PO ONE (16:55)
[2021-03-26 16:59] LABS: BASO % 0.6 % (0.0-1.0); EOS # 0.1 10^3/uL (0.0-0.5); EOS % 1.7 % (0.0-3.0); HEMATOCRIT 36.3 % (36.0-47.0); HEMOGLOBIN 11.7 g/dl (12.0-15.5); LYMPH % 37.7 % (24.0-44.0); MEAN CORPUSCULAR HEMOGLOBIN 30.2 pg (27.0-33.0); MEAN CORPUSCULAR HGB CONC 32.2 g/dl (32.0-36.5); MEAN CORPUSCULAR VOLUME 93.8 fl (80.0-96.0); MONO # 0.5 10^3/uL (0.0-0.8); MONO % 9.2 % (2.0-8.0); NEUTROPHILS # 2.7 10^3/uL (1.5-8.5); NEUTROPHILS % 50.4 % (36.0-66.0); PLATELET COUNT, AUTOMATED 271 10^3/uL (150-450); RED BLOOD COUNT 3.87 10^6/uL (4.00-5.40); WHITE BLOOD COUNT 5.4 10^3/uL (4.0-10.0)
[2021-03-26 17:12] LABS: INR 0.88; PROTHROMBIN TIME 12.1 SECONDS (12.5-14.3)
[2021-03-26 17:24] LABS: ALT/SGPT 21 U/L (12-78); BILIRUBIN,DIRECT < 0.1 MG/DL (0.0-0.2); BILIRUBIN,TOTAL 0.3 MG/DL (0.2-1.0); BLOOD UREA NITROGEN 19 MG/DL (7-18); CALCIUM LEVEL 8.8 MG/DL (8.8-10.2); CARBON DIOXIDE LEVEL 28 MEQ/L (21-32); CHLORIDE LEVEL 111 MEQ/L (98-107); CK-MB VALUE MASS < 1.0 NG/ML (<3.6); CPK CREATINE PHOSPHOKINASE 63 U/L (26-192); CREATININE FOR GFR 1.33 MG/DL (0.55-1.30); FREE T4 0.84 NG/DL (0.76-1.46); GLOMERULAR FILTRATION RATE 42.2 (>45); GLUCOSE, FASTING 94 MG/DL (70-100); LIPASE 127 U/L (73-393); MB/CK RELATIVE INDEX 1.59 (< OR =4); POTASSIUM SERUM 3.9 MEQ/L (3.5-5.1); SODIUM LEVEL 144 MEQ/L (136-145); TOTAL PROTEIN 7.4 GM/DL (6.4-8.2); TROPONIN I < 0.02 NG/ML (< 0.10)
--- NOTE | 2021-03-26 18:10 | REP ---
INDICATION: CHEST PAIN. COMPARISON: 08/02/2020 TECHNIQUE: PA and lateral FINDINGS: The superior mediastinal structures are midline. The cardiac silhouette is unremarkable in size, shape, and position. The diaphragmatic surfaces of the lungs are regular, and the costophrenic angles are clear. The pulmonary beckford are clear. The imaged osseous structures are intact. IMPRESSION: There is no acute cardiopulmonary disease. <Electronically signed by Sarabjit Washburn > 03/26/21 0148
--- NOTE | 2021-03-26 18:28 | REPVR ---
PROCEDURE INFORMATION: Exam: CT Head Without Contrast Exam date and time: 03/26/2021 5:48 PM Age: 70 years old Clinical indication: Pain; Headache; Additional info: HTN headache TECHNIQUE: Imaging protocol: Computed tomography of the head without contrast. Radiation optimization: All CT scans at this facility use at least one of these dose optimization techniques: automated exposure control; mA and/or kV adjustment per patient size (includes targeted exams where dose is matched to clinical indication); or iterative reconstruction. COMPARISON: CT Head without contrast 02/03/2021 11:44 AM FINDINGS: Brain: No acute intracranial hemorrhage, cerebral edema, or midline shift. Cerebral ventricles: No hydrocephalus. Bones/joints: No acute fracture. Paranasal sinuses: There is no acute sinusitis. Mastoid air cells: Visualized mastoid air cells are well aerated. Orbital cavity: Unremarkable as visualized. Soft tissues: Unremarkable. IMPRESSION: No acute intracranial abnormality. Electronically signed by: Brian Arriaga On 03/26/2021 18:28:30 PM
[2021-03-26] MEDS ORDERED: LABETALOL 100MG/20ML VIAL IV STA ×2 (18:36→21:48)
[2021-03-26] MEDS ORDERED: CLON1TAB17 PO (19:32)
[2021-03-26] MEDS ORDERED: FLUT22IN INH (19:32)
[2021-03-26] MEDS ORDERED: LEVOTAB10 PO (19:32)
[2021-03-26] MEDS ORDERED: CLON1TAB8 PO (19:33)
[2021-03-26 20:02] LABS: RSV AMPLIFICATION NEGATIVE (NEGATIVE)
[2021-03-26] MEDS ORDERED: clonazePAM 0.5 MG TAB PO PRN (21:50)
[2021-03-26] MEDS ORDERED: MOM 30ML SUSPENSION UDC PO PRN (21:55)
[2021-03-26] MEDS ORDERED: MAALOX 30 ML SUSP *UDC PO PRN (21:55)
[2021-03-26] MEDS ORDERED: cloNIDine 0.1MG TABLET PO ONE (21:55)
[2021-03-26] MEDS: niCARdipine IV 40 MG in IV 1 EA IV SCH (22:00)
[2021-03-26] MEDS ORDERED: PILL CUTTER 1 EACH XX PRN (22:05)
[2021-03-26] MEDS: ACETAMINOPHEN TAB 650MG DOSE (2X325MG) PO PRN (22:11)
--- NOTE | 2021-03-26 22:19 | HPEPDOC ---
[facility] Medical History & Physical Date of Admission Mar 26, 2021 Date of Service: Mar 26, 2021 History and Physical CHIEF COMPLAINT: headache HISTORY OF PRESENT ILLNESS: 70 yo F with a hx of HTN and anxiety, presented to [facility] ER with a 24 hour hx of severe diffuse headache and tingling in her arms and legs with generalized malaise. She reports her BP at home to be 230 mmHg systolic. She takes irbesartan and bisoprolol with prn clonazepam for anxiety. Patient has had frequent admissions and ER visits for hypertensive urgency. In the ER, patient continues to be in SBP > 200 despite 20 mg IV labetalol. She had also reported a brief episode of pleuritic chest pain this morning which has since resolved. She denies chest pain, SOB, palpitations, blurred vision, weakness. CT head wo contrast did not indicate PAST MEDICAL HISTORY: CKD III History of migraine headaches HSV HTN Hematuria PAST SURGICAL HISTORY: HUSSEIN/BSO SOCIAL HISTORY: denies smoking denies etoh use denies illicit drug use FAMILY HISTORY: Father:CA prostate, HTN Mother: HTN ALLERGIES: Please see below. REVIEW OF SYSTEMS: 10 point ROS was conducted, relevant findings are noted in the HPI. HOME MEDICATIONS: Please see below. PHYSICAL EXAMINATION: VITAL SIGNS: please see below General: NAD, comfortable HEENT: PERRLA, EOMI, sclerae clear Neck: supple, normal ROM, no JVD Respiratory: lungs CTAB, no wheeze, no rales, no crackles CVS: RRR, normal S1, S2, no murmurs Abdo: soft, no masses, no hepatosplenomegaly, BS+, no rebound tenderness Extremities: no edema, pulses 2+ MSK: no joint deformities, normal ROM Neuro: no focal neuro deficits, moving all 4 extremities, CN2-12 intact. Strength 5/5 in all 4 extremities. No nystagmus. Psych: calm, cooperative, AAO x 3 LABORATORY DATA: See below. IMAGING: CT head wo contrast (03/26/21): No acute intracranial abnormality. CXR (03/26/21): There is no acute cardiopulmonary disease. MICROBIOLOGY: Please see below. ASSESSMENT: 70 yo F with a hx of HTN and anxiety, admitted to ICU for management of hypertensive emergency. Patient will be placed on nicardipine drip. Due to persistent parasthesia in the LE will obtain stat MRI brain to r/o CVA. . PLAN: Hypertensive emergency: - admit to ICU - nicardipine ggt, goal BP < 180 mmHg systolic - CT head wo acute changes - obtain MRI brain wo contrast to r/o ischemic CVA due to parasthesia in lower extremities, R > L - obtain 2D echo - obtain renal US with dopplers - obtain VMA, plasma metanephrines, catecholamines Chest pain, now resolved. - EKG NSR - initial trop < 0.02, on repeat 0.37 - repeat EKG showing to ST changes. Patient continues to be free of chest pain - I discussed with Dr. Pope, recommended to continue to trend troponin, to give ASA and increase statin dose. Recommended not to heparinize at this time. - if troponins continue to rise, will initiate transfer to cath center per Dr. Pope CKD 3: - Cr 1.33, at baseline - avoid nephrotoxins Depression and anxiety - resume home medications - buspirone, buproprion - takes clonazepam prn GERD - c/w omeprazole DVT ppx: heparin 5000 units q8h SC. Vital Signs Vital Signs Date Time Temp Pulse Resp B/P (MAP) Pulse Ox O2 Delivery O2 Flow Rate FiO2 03/26/21 21:04 77 18 98 Room Air 03/26/21 21:00 195/107 (136) 03/26/21 15:59 97.4 Laboratory Data Labs 24H Laboratory Tests 2 03/26/21 16:37: Immature Granulocyte % (Auto) 0.4, Neutrophils (%) (Auto) 50.4, Lymphocytes (%) (Auto) 37.7, Monocytes (%) (Auto) 9.2H, Eosinophils (%) (Auto) 1.7, Basophils (%) (Auto) 0.6, Neutrophils # (Auto) 2.7, Lymphocytes # (Auto) 2.0, Monocytes # (Auto) 0.5, Eosinophils # (Auto) 0.1, Basophils # (Auto) 0.0, Nucleated Red Blood Cells % (auto) 0.0, Prothrombin Time 12.1, Prothromb Time International Ratio 0.88, Activated Partial Thromboplast Time 28.0, Anion Gap 5L, Glomerular Filtration Rate 42.2L, Calcium Level 8.8, Total Bilirubin 0.3, Direct Bilirubin < 0.1, Aspartate Amino Transf (AST/SGOT) 19, Alanine Aminotransferase (ALT/SGPT) 21, Alkaline Phosphatase 146H, Total Creatine Kinase 63, Creatine Kinase MB < 1.0, Creatine Kinase MB Relative Index 1.59, Troponin I < 0.02, Total Protein 7.4, Albumin 4.0, Albumin/Globulin Ratio 1.2, Lipase 127, Thyroid Stimulating Hormone (TSH) 1.780, Free Thyroxine 0.84 03/26/21 19:14: Coronavirus (COVID-19)(PCR) NEGATIVE, Influenza Type A (RT-PCR) NEGATIVE, Influenza Type B (RT-PCR) NEGATIVE, Respiratory Syncytial Virus (PCR) NEGATIVE CBC/BMP Laboratory Tests 03/26/21 16:37 Home Medications Scheduled Atorvastatin Calcium (Atorvastatin Calcium) 20 Mg Tablet, 20 MG PO DAILY Bisoprolol Fumarate (Bisoprolol Fumarate) 10 Mg Tablet, 10 MG PO DAILY Bupropion HCl (Bupropion HCl Sr) 100 Mg Tab.sr.12h, 100 MG PO BID Buspirone HCl (Buspirone HCl) 10 Mg Tablet, 20 MG PO BID Cholecalciferol (Vitamin D3) (Vitamin D3) 1,000 Unit Tablet, 1,000 UNITS PO DAILY Ferrous Gluconate (Ferrous Gluconate) 324 Mg Tablet, 324 MG PO Q2D Fluticasone Propionate (Flovent Hfa) 220 Mcg/Act Aer.w.adap, 2 PUFF INH BID Irbesartan (Irbesartan) 75 Mg Tablet, 75 MG PO BID Levocetirizine Dihydrochloride (Levocetirizine Dihydrochloride) 5 Mg Tablet, 5 MG PO DAILY Omeprazole (Omeprazole) 40 Mg Cap, 40 MG PO DAILY Propylene Glycol/Peg 400 (Systane Gel Eye Drops) 10 Ml Drops.gel, 1 CUATE OU QPM Pyridoxine HCl (Vitamin B6) (Vitamin B-6) 50 Mg Tablet, 50 MG PO DAILY Scheduled PRN Clonazepam (Clonazepam) 1 Mg Tablet, 0.5 MG PO DAILY PRN for high blood pressure can take up to 1mg Allergies Coded Allergies: azithromycin (Unverified Allergy, Unknown, 08/02/20) cyclobenzaprine (Unverified Allergy, Unknown, 08/02/20) LIBBY KAT MD Mar 26, 2021 22:19
--- NOTE | 2021-03-26 22:59 | REPVR ---
PROCEDURE INFORMATION: Exam: MR Head Without Contrast Exam date and time: 03/26/2021 10:03 PM Age: 70 years old Clinical indication: Dizziness; Additional info: R/O CVA TECHNIQUE: Imaging protocol: MR of the head without contrast. COMPARISON: MRI-Brain without Contrast 08/03/2020 4:38 AM FINDINGS: Brain: There is no evidence of an acute ischemic event. There is no evidence of a focal mass. No cerebellopontine angle mass is identified. There is no evidence of intracranial hemorrhage. No abnormal extra-axial fluid collections are identified. Minimal signal changes in the periventricular white matter are nonspecific but statistically most likely reflect chronic microvascular ischemic disease. The midbrain and akash are normal. Cerebral ventricles: No hydrocephalus. Bones/joints: Unremarkable. Paranasal sinuses: There is minimal sinus mucosal disease, with no air-fluid level identified. Mastoid air cells: There is no mastoid effusion detected. Orbital cavity: The orbits are normal. IMPRESSION: 1. No acute ischemia, mass or hemorrhage. 2. Minimal signal changes in the periventricular white matter are nonspecific but statistically most likely reflect chronic microvascular ischemic disease. Electronically signed by: Aurea Suero On 03/26/2021 22:58:45 PM
--- NOTE | 2021-03-26 23:14 | ECGEPIP ---
[facility] - ED Test Date: 2021-03-26 Pat Name: JASMINE BOATENG Department: Room: - Gender: Female Facilities Specialist: Danika TOLBERT : 1950 Requested By: HUMPHREY Logan Order Number: [id number] Reading MD: Everton Villalobos Measurements Intervals [place] Rate: 80 P: 50 [place]: 200 QRS: -12 QRSD: 84 T: 60 QT: 392 QTc: 452 Interpretive Statements Normal sinus rhythm POOR R WAVE PROGRESSION SIMILAR TO 02/03/21 Electronically Signed on 03-26-2021 23:13:55 EDT by Everton Villalobos
[2021-03-26 23:23] VITALS: BP 185/92
[2021-03-26 23:30] VITALS: BP 178/90
[2021-03-26 23:45] VITALS: BP 175/85
[2021-03-27] VITALS (38 sets, daily range): BP systolic 107–199; BP diastolic 54–92
[2021-03-27] MEDS ORDERED: ASPIRIN 325 MG TAB PO ONE (01:50)
[2021-03-27 05:07] LABS: BASO # 0.1 10^3/uL (0.0-0.2); BASO % 0.9 % (0.0-1.0); EOS # 0.1 10^3/uL (0.0-0.5); EOS % 1.3 % (0.0-3.0); HEMATOCRIT 32.4 % (36.0-47.0); HEMOGLOBIN 10.1 g/dl (12.0-15.5); LYMPH # 1.8 10^3/uL (1.5-5.0); LYMPH % 33.5 % (24.0-44.0); MEAN CORPUSCULAR HEMOGLOBIN 29.2 pg (27.0-33.0); MEAN CORPUSCULAR HGB CONC 31.2 g/dl (32.0-36.5); MEAN CORPUSCULAR VOLUME 93.6 fl (80.0-96.0); MONO # 0.5 10^3/uL (0.0-0.8); NEUTROPHILS # 2.9 10^3/uL (1.5-8.5); NEUTROPHILS % 54.1 % (36.0-66.0); PLATELET COUNT, AUTOMATED 235 10^3/uL (150-450); RED BLOOD COUNT 3.46 10^6/uL (4.00-5.40); WHITE BLOOD COUNT 5.3 10^3/uL (4.0-10.0)
[2021-03-27 05:51] LABS: ALBUMIN 3.5 GM/DL (3.2-5.2); BILIRUBIN,TOTAL 0.5 MG/DL (0.2-1.0); CALCIUM LEVEL 8.7 MG/DL (8.8-10.2); CREATININE FOR GFR 1.13 MG/DL (0.55-1.30); POTASSIUM SERUM 3.9 MEQ/L (3.5-5.1); TOTAL PROTEIN 6.5 GM/DL (6.4-8.2); TROPONIN I 0.26 NG/ML (< 0.10)
[2021-03-27] MEDS: niCARdipine IV 40 MG in IV 1 EA IV SCH (06:00)
[2021-03-27] MEDS: **hydrALAZINE HCL** 25 MG TAB PO SCH ×2 (06:00→12:00)
[2021-03-27] MEDS ORDERED: HEPARIN SOD (PORCINE) 5000UNITS/ML 1ML VIAL/SYRINGE SC SCH (06:00)
[2021-03-27] MEDS ORDERED: FLUTICASONE HFA 220 MCG 12 GM INHALER (FLOVENT) INH SCH (08:00)
[2021-03-27] MEDS ORDERED: ATORVASTATIN 20 MG TAB PO SCH ×2 (09:00)
[2021-03-27] MEDS ORDERED: bisoproloL fumarate 10 MG TAB PO SCH (09:00)
[2021-03-27] MEDS ORDERED: DOCUSATE SODIUM 100MG CAPSULE PO SCH (09:00)
[2021-03-27] MEDS ORDERED: VITAMIN D 1,000 INTERNATIONAL UNITS TABLET PO SCH (09:00)
[2021-03-27] MEDS ORDERED: ASPIRIN 81MG ENTERIC TABLET PO SCH (09:00)
[2021-03-27] MEDS ORDERED: FERROUS GLUCONATE 324 MG TAB PO SCH (09:00)
[2021-03-27] MEDS ORDERED: IRBESARTAN 150MG TAB PO SCH ×2 (09:00)
[2021-03-27] MEDS ORDERED: OMEPRAZOLE 20 MG CAP PO SCH (09:00)
[2021-03-27] MEDS ORDERED: PYRIDOXINE 50 MG TAB PO SCH (09:00)
[2021-03-27] MEDS ORDERED: busPIRone 10 MG TAB PO SCH (09:00)
[2021-03-27] MEDS ORDERED: buPROPion (WELLBUTRIN SR) 100 MG SR TAB PO SCH (09:00)
[2021-03-27] MEDS: ACETAMINOPHEN TAB 650MG DOSE (2X325MG) PO PRN (09:08)
--- NOTE | 2021-03-27 09:14 | ECGEPIP ---
[facility] Test Date: 2021-03-27 Pat Name: JASMINE BOATENG Department: Room: [place] [address] Gender: Female Geropsychologist: DAYANNA : 1950 Requested By: LIBBY KAT Order Number: [id number] Reading MD: Nina Zuniga Measurements Intervals [place] Rate: 74 P: 62 [place]: 224 QRS: 23 QRSD: 80 T: 67 QT: 448 QTc: 497 Interpretive Statements Sinus rhythm with 1st degree AV block with premature ventricular complexes POSSIBLE Septal infarct , age undetermined // R WAVE PROGRESSION ACTUALLY IMPROVED SD LONGER ECTOPY NEW C/W 03/26/21 Electronically Signed on 03-27-2021 9:14:01 EDT by Nina Zuniga
--- NOTE | 2021-03-27 09:17 | ECGEPIP ---
[facility] Test Date: 2021-03-27 Pat Name: JASMINE BOATENG Department: Room: [place] [address] Gender: Female Mirror Machine Feeder: DAYANNA : 1950 Requested By: LIBBY KAT Order Number: [id number] Reading MD: Nina Zuniga Measurements Intervals [place] Rate: 70 P: 66 [place]: 232 QRS: 18 QRSD: 76 T: 69 QT: 440 QTc: 475 Interpretive Statements Sinus rhythm with 1st degree AV block with premature supraventricular complexes POSSIBLE Septal infarct , age undetermined ME LONGER PAC NEW, PVCS ABSENT C/W 03/27/21 0144 Electronically Signed on 03-27-2021 9:17:11 EDT by Nina Zuniga
--- NOTE | 2021-03-27 11:33 | REP ---
INDICATION: hypertensive urgency. COMPARISON: None. TECHNIQUE: Real-time sonographic evaluation of the kidneys is performed. Duplex Doppler evaluation of renal arteries performed. FINDINGS: Renal cortical echogenicity pattern is normal bilaterally and contours are smooth. There is no hydronephrosis bilaterally. There is a 6 mm cyst in the upper right kidney, an 8 mm cyst in the upper left kidney and a 6 mm cyst in the lower left kidney. The right kidney measures 9.9 x 4.9 x 4.2 cm. Left renal dimensions are 9.3 x 4.4 x 4.6 cm. Duplex Doppler evaluation of renal arteries performed. The peak systolic velocity in the abdominal aorta at the level of the renal arteries is 69.2 centimeter/second. The peak systolic velocity in the main right renal artery is 97.6 centimeter/second, renal to aortic ratio 1.4. Resistive indices right kidney range between 0.61 and 0.69. Acceleration times are in the range of 0.042. The peak systolic velocity of the main left renal artery is 112.6 centimeters/second, renal to aortic ratio 1.6. Resistive indices left kidney range between 0.44 and 0.68. Acceleration times are in the range of 0.042. IMPRESSION: No compelling duplex Doppler sonographic evidence of hemodynamically significant stenosis of bilateral renal arteries. <Electronically signed by Murphy Rg > 03/27/21 [id number]
[2021-03-27] MEDS ORDERED: AMLO1TAB25 PO (12:05)
[2021-03-27] MEDS ORDERED: IRBE150T7 PO (12:07)
[2021-03-27] MEDS ORDERED: IRBE75TA4 PO (12:11)
--- NOTE | 2021-03-31 07:17 | DS.PDOC ---
Discharge Summary General Date of Admission Mar 26, 2021 at 21:53 Date of Discharge 03/27/21 Discharge Summary PROCEDURES PERFORMED DURING STAY: [None]. DISCHARGE DIAGNOSES: Hypertensive urgency. COMPLICATIONS/CHIEF COMPLAINT: Hypertensive Emergency. HOSPITAL COURSE: 70 yo F with a hx of HTN and anxiety, admitted for management of hypertensive emergency. Hypertensive emergency: CT head no acute changes MRI brain chronic ischemic changes no acute infarct. renal US with dopplers negative fro renal artery stenosis. VMA, plasma metanephrines, catecholamines in progress Chest pain, now resolved. EKG no acute ischemic changes. slight increase in troponin likely due to hypertensive emergency then came down. continue ASA and statin. Had recent Echo and nuclear stress testing done with cardiology. 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 CKD 3: Cr 1.33, at baseline avoid nephrotoxins Depression and anxiety buspirone, buproprion takes clonazepam prn GERD omeprazole DISCHARGE MEDICATIONS: Please see below. ALLERGIES: Please see below. PHYSICAL EXAMINATION ON DISCHARGE: VITAL SIGNS: Please see below. General: NAD, comfortable HEENT: PERRLA, EOMI, sclerae clear Neck: supple, normal ROM, no JVD Respiratory: lungs CTAB, no wheeze, no rales, no crackles CVS: RRR, normal S1, S2, no murmurs Abdo: soft, no masses, no hepatosplenomegaly, BS+, no rebound tenderness Extremities: no edema, pulses 2+ MSK: no joint deformities, normal ROM Neuro: no focal neuro deficits, moving all 4 extremities, CN2-12 intact. Strength 5/5 in all 4 extremities. No nystagmus. Psych: calm, cooperative, AAO x 3 LABORATORY DATA: See below. IMAGING: CT head wo contrast (03/26/21): No acute intracranial abnormality. CXR (03/26/21): There is no acute cardiopulmonary disease. MRI Brain: 1. No acute ischemia, mass or hemorrhage. 2. Minimal signal changes in the periventricular white matter are nonspecific but statistically most likely reflect chronic microvascular ischemic disease. Renal Arterial Doppler: Renal cortical echogenicity pattern is normal bilaterally and contours are s mooth. There is no hydronephrosis bilaterally. There is a 6 mm cyst in the upper right kidney, an 8 mm cyst in the upper left kidney and a 6 mm cyst in the lower left kidney. The right kidney measures 9.9 x 4.9 x 4.2 cm. Left renal dimensions are 9.3 x 4.4 x 4.6 cm. Duplex Doppler evaluation of renal arteries performed. The peak systolic velocity in the abdominal aorta at the level of the renal arteries is 69.2 centimeter/second. The peak systolic velocity in the main right renal artery is 97.6 centimeter/second, renal to aortic ratio 1.4. Resistive indices right kidney range between 0.61 and 0.69. Acceleration times are in the range of 0.042. The peak systolic velocity of the main left renal artery is 112.6 centimeters/second, renal to aortic ratio 1.6. Resistive indices left kidney range between 0.44 and 0.68. Acceleration times are in the range of 0.042. IMPRESSION: No compelling duplex Doppler sonographic evidence of hemodynamically significant stenosis of bilateral renal arteries. ACTIVITY: [As tolerated]. DIET: 2 gm sodium DISPOSITION: 01 Home, Self-Care. DISCHARGE INSTRUCTIONS: PMD in 1 week DISCHARGE CONDITION: [Stable]. TIME SPENT ON DISCHARGE: 35 minutes. Vital Signs/I&Os Vital Signs Date Time Temp Pulse Resp B/P (MAP) Pulse Ox O2 Delivery O2 Flow Rate FiO2 03/27/21 13:00 74 111/58 (75) 95 03/27/21 12:00 97.8 16 Room Air Discharge Medications Scheduled Amlodipine Besylate (Amlodipine Besylate) 10 Mg Tablet, 10 MG PO QHS Atorvastatin Calcium (Atorvastatin Calcium) 20 Mg Tablet, 20 MG PO DAILY, (Reported) Bisoprolol Fumarate (Bisoprolol Fumarate) 10 Mg Tablet, 10 MG PO DAILY, (Reported) Bupropion HCl (Bupropion HCl Sr) 100 Mg Tab.sr.12h, 100 MG PO BID, (Reported) Buspirone HCl (Buspirone HCl) 10 Mg Tablet, 20 MG PO BID, (Reported) Cholecalciferol (Vitamin D3) (Vitamin D3) 1,000 Unit Tablet, 1,000 UNITS PO DAILY, (Reported) Ferrous Gluconate (Ferrous Gluconate) 324 Mg Tablet, 324 MG PO Q2D, (Reported) Fluticasone Propionate (Flovent Hfa) 220 Mcg/Act Aer.w.adap, 2 PUFF INH BID, (Reported) Irbesartan (Irbesartan) 75 Mg Tablet, 75 MG PO BID Levocetirizine Dihydrochloride (Levocetirizine Dihydrochloride) 5 Mg Tablet, 5 MG PO DAILY, (Reported) Omeprazole (Omeprazole) 40 Mg Cap, 40 MG PO DAILY, (Reported) Propylene Glycol/Peg 400 (Systane Gel Eye Drops) 10 Ml Drops.gel, 1 CUATE OU QPM, (Reported) Pyridoxine HCl (Vitamin B6) (Vitamin B-6) 50 Mg Tablet, 50 MG PO DAILY, (Reported) Scheduled PRN Clonazepam (Clonazepam) 1 Mg Tablet, 0.5 MG PO DAILY PRN for high blood pressure, (Reported) can take up to 1mg Allergies Coded Allergies: azithromycin (Unverified Allergy, Unknown, 08/02/20) cyclobenzaprine (Unverified Allergy, Unknown, 08/02/20) DERIC AMES MD March 31, 2021 07:06
== END 2021-03-27 14:50 | disposition home or self-care (01) | DRG 305 ==
LOC: M ED 15:58 → M ED INP 21:53 → M ICU 23:19
PROVIDERS: ADMIT Family Medicine; ATTEND Internal Medicine Nephrology
DX: I16.0 Hypertensive urgency (principal); N18.30 Chronic kidney disease, stage 3 unspecified; G43.909 Migraine, unspecified, not intractable, without status migrainosus; I10 Essential (primary) hypertension; F32.9 Major depressive disorder, single episode, unspecified; F41.9 Anxiety disorder, unspecified; K21.9 Gastro-esophageal reflux disease without esophagitis; Z20.822 Contact with and (suspected) exposure to COVID-19; Z79.899 Other long term (current) drug therapy; Z88.1 Allergy status to other antibiotic agents; Z88.8 Allergy status to other drugs, medicaments and biological substances

== ENCOUNTER → 2021-04-01 | Outpatient (CLI) | payer MEDICARE, OTHER ==
[~2021-04-01] MED LIST changes: +AMLO1TAB25 PO; +BUSP10TA PO; +CLON1TAB17 PO; +CLON1TAB8 PO; +IRBE150T7 PO
== END ==
LOC: M LAB 12:14
PROVIDERS: ATTEND Internal Medicine
DX: I10 Essential (primary) hypertension (principal)

== ENCOUNTER → 2021-05-01 | Outpatient (CLI) | payer MEDICARE, OTHER ==
[2021-05-01 16:01] LABS: BASO % 0.6 % (0.0-1.0); EOS # 0.1 10^3/uL (0.0-0.5); EOS % 1.5 % (0.0-3.0); HEMATOCRIT 35.4 % (36.0-47.0); HEMOGLOBIN 10.7 g/dl (12.0-15.5); LYMPH # 1.5 10^3/uL (1.5-5.0); LYMPH % 27.6 % (24.0-44.0); MEAN CORPUSCULAR HEMOGLOBIN 29.2 pg (27.0-33.0); MEAN CORPUSCULAR HGB CONC 30.2 g/dl (32.0-36.5); MEAN CORPUSCULAR VOLUME 96.5 fl (80.0-96.0); MONO # 0.5 10^3/uL (0.0-0.8); MONO % 8.6 % (2.0-8.0); NEUTROPHILS # 3.3 10^3/uL (1.5-8.5); NEUTROPHILS % 61.3 % (36.0-66.0); PLATELET COUNT, AUTOMATED 290 10^3/uL (150-450); RED BLOOD COUNT 3.67 10^6/uL (4.00-5.40); WHITE BLOOD COUNT 5.4 10^3/uL (4.0-10.0)
[2021-05-01 16:37] LABS: ALBUMIN 4.1 GM/DL (3.2-5.2); BILIRUBIN,TOTAL 0.4 MG/DL (0.2-1.0); CALCIUM LEVEL 9.4 MG/DL (8.8-10.2); CREATININE FOR GFR 1.68 MG/DL (0.55-1.30); FREE THYROXINE INDEX 1.8 % (1.3-4.8); GLOMERULAR FILTRATION RATE 32.3 (>45); POTASSIUM SERUM 4.3 MEQ/L (3.5-5.1); THYROID STIMULATING HORMONE 1.46 uIU/ML (0.358-3.740); THYROXINE (T4) 6.3 UG/DL (4.5-12.0); TOTAL PROTEIN 7.5 GM/DL (6.4-8.2)
== END ==
LOC: M WUC 11:05
PROVIDERS: ATTEND Psychiatry & Neurology Neurology
DX: E07.9 Disorder of thyroid, unspecified (principal); R25.1 Tremor, unspecified

== ENCOUNTER → 2021-05-07 | Outpatient (CLI) | payer MEDICARE, OTHER ==
[~2021-05-07] MED LIST changes: +TRAV2.5D OU
== END ==
LOC: M LABSMTC 11:58
PROVIDERS: ATTEND Anesthesiology
DX: Z01.818 Encounter for other preprocedural examination (principal); Z11.52 Encounter for screening for COVID-19

== ENCOUNTER → 2021-08-12 | Outpatient (REF) | payer MEDICARE, OTHER ==
[~2021-08-12] MED LIST changes: +OMEP40CA4 PO; -OMEP40CA97 PO
[2021-08-12 15:07] LABS: MAGNESIUM LEVEL 2.4 MG/DL (1.8-2.4)
== END ==
LOC: M LAB REF 13:13
PROVIDERS: ATTEND Internal Medicine Nephrology
DX: N18.9 Chronic kidney disease, unspecified (principal); E83.42 Hypomagnesemia; D63.1 Anemia in chronic kidney disease

== ENCOUNTER → 2021-09-16 | Outpatient (CLI) | payer MEDICARE, OTHER ==
--- NOTE | 2021-09-16 14:36 | REP ---
INDICATION: Assess stenosis TECHNIQUE: Carotid ultrasonography was performed bilaterally FINDINGS: Right: CCA systolic: 66.0 centimeters/second CCA diastolic: 17.7 centimeters/second ICA systolic: 81.2 centimeters/second ICA diastolic: 31.6 centimeters/second ICA CCA ratio: 1.23 Left: CCA systolic: 87.9 centimeters/second CCA diastolic: 26.8 centimeters/second ICA systolic: 89.5 centimeters/second ICA diastolic: 34.6 centimeters/second ICA CCA ratio: 1.02 Vertebral artery: Right: Antegrade flow left: Antegrade flow Echogenic material is seen along the carotid arterial ley some of which casts and acoustic shadow IMPRESSION: According to the SRU criteria there is less than 50% stenosis of the internal carotid artery bilaterally. This is secondary to both calcified and noncalcified atheromatous plaque formation. <Electronically signed by Sarabjit Washburn > 09/16/21 [id number]
== END ==
LOC: M RAD 13:21
PROVIDERS: ATTEND Internal Medicine Cardiovascular Disease
DX: I65.23 Occlusion and stenosis of bilateral carotid arteries (principal)

== ENCOUNTER → 2021-10-07 | Outpatient (REF) | payer MEDICARE, OTHER ==
[2021-10-07 13:58] LABS: BACTERIA, URINE AUTO 1+ (NEGATIVE); MUCUS, URINE SMALL (NEGATIVE); RBC, URINE AUTO 14 /HPF (0-3); SQUAMOUS EPITHELIAL CELL UR AU 11 /HPF (0-6); WBC, URINE AUTO 12 /HPF (0-3)
== END ==
LOC: M LAB REF 13:24
PROVIDERS: ATTEND Internal Medicine Nephrology
DX: N18.32 Chronic kidney disease, stage 3b (principal)

== ENCOUNTER → 2021-10-31 | Outpatient (CLI) | payer MEDICARE, OTHER ==
[~2021-10-31] MED LIST changes: +ISOVUE-300 61% 50ML VIAL As Ordered ONE; +LIDOCAINE 1% MDV 20ML VIAL As Ordered ONE; +TRIAMCINOLONE ACETONIDE SUSP 40 MG/ML VIAL (J3301) As Ordered ONE
--- NOTE | 2021-10-31 17:40 | REP ---
INDICATION: OSTEOARTHRITIS LT HIP. TECHNIQUE: The procedure was performed by TAPAN Powell, under the direct supervision of Dr. Rg. The benefits and risks of the procedure were explained to the patient, and an informed consent was obtained. Directly prior to the start of the procedure, a formal time-out was completed in the procedure room. The left hip joint space was localized using fluoroscopic guidance. The skin was prepped and draped in a sterile fashion. Approximately 6 mL of 1% Lidocaine 10 mg/ml was used as a local anesthetic. Using fluoroscopic guidance, a #22 gauge spinal needle was inserted and advanced into the left hip joint space. Approximately 3 mL of Isovue 300 was injected to verify placement. Six mL of a solution containing 5 mL 1% lidocaine 10 mg/ml and 1 mL Kenalog 40 mg/mL was injected into the joint space. The needle was removed and hemostasis was achieved. FINDINGS: The patient tolerated the procedure well and there were no immediate complications. IMPRESSION: 1. Technically successful left hip injection. 0.1 minutes of fluoroscopy time was utilized for this procedure. Some fluoroscopic images are performed with last image hold technology. These images require no additional radiation. <Electronically signed by Miranda Winters > 10/31/21 1233 <Electronically signed by Murphy Rg > 10/31/21 3024
== END ==
LOC: M RADPRO 10:31
PROVIDERS: ATTEND Orthopaedic Surgery
DX: M16.12 Unilateral primary osteoarthritis, left hip (principal)
CPT/HCPCS: 20610; 77002; J3301; Q9967

== ENCOUNTER → 2021-11-06 | Outpatient (REF) | payer MEDICARE, OTHER ==
[~2021-11-06] MED LIST changes: -ISOVUE-300 61% 50ML VIAL As Ordered ONE; -LIDOCAINE 1% MDV 20ML VIAL As Ordered ONE; -TRIAMCINOLONE ACETONIDE SUSP 40 MG/ML VIAL (J3301) As Ordered ONE
== END ==
LOC: M LAB REF 12:54
PROVIDERS: ATTEND Internal Medicine Nephrology
DX: E83.42 Hypomagnesemia (principal)

== ENCOUNTER → 2021-11-14 | Outpatient (CLI) | payer MEDICARE, OTHER | LOC: M WHC 13:57 | PROVIDERS: ATTEND Internal Medicine | DX: Z12.31 Encounter for screening mammogram for malignant neoplasm of breast (principal) ==

== ENCOUNTER → 2022-02-10 | Outpatient (REF) | payer MEDICARE, OTHER ==
[~2022-02-10] MED LIST changes: -D31000TA2 PO; +VITA100093 PO
[2022-02-10 18:10] LABS: PERCENT SATURATION 23.9 % (13.2-45.0)
== END ==
LOC: M LAB REF 16:51
PROVIDERS: ATTEND Internal Medicine Nephrology
DX: N18.32 Chronic kidney disease, stage 3b (principal); D63.1 Anemia in chronic kidney disease

== ENCOUNTER 2022-02-20 12:49 | Outpatient (CLI) | payer MEDICARE, OTHER ==
[~2022-02-20] VITALS: Ht 165.1 cm; Wt 65.9 kg
[~2022-02-20 12:49] MED LIST changes: +ALBUTEROL SULFATE 2.5 MG/0.5 ML INH NEB SOLN INH PRN; +EPINEPHrine INJ 1 MG/ML 1ML AMP IM PRN; +diphenhydrAMINE 50MG/ML VIAL (J1200) IV PRN; +methylPREDNISolone 125MG 2ML VIAL IV PRN
[2022-02-20] MEDS ORDERED: NS 1,000 ML IV SCH (13:00)
[2022-02-20] MEDS ORDERED: FERRIC CARBOXYMALTOSE INJ 750 MG, VIAL MATE ADAPTER 1 EACH in NS 250 ML IV ONE (13:00)
[2022-02-20 13:05] VITALS: BP 140/66
[2022-02-20 15:25] VITALS: BP 142/72
== END 2022-02-20 15:25 | disposition home or self-care (01) ==
LOC: M INFU 12:49
PROVIDERS: ATTEND Internal Medicine Nephrology
DX: E61.1 Iron deficiency (principal)
CPT/HCPCS: 96365; J1439

== ENCOUNTER 2022-02-27 14:09 | Outpatient (CLI) | payer MEDICARE, OTHER ==
[~2022-02-27] VITALS: Ht 165.1 cm; Wt 66.7 kg
[~2022-02-27 14:09] MED LIST changes: +FERRIC CARBOXYMALTOSE INJ 750 MG, VIAL MATE ADAPTER 1 EACH in NS 250 ML IV ONE; +NS 1,000 ML IV SCH
[2022-02-27 16:10] VITALS: BP 145/78
== END 2022-02-27 16:10 | disposition home or self-care (01) ==
LOC: M INFU 14:09
PROVIDERS: ATTEND Internal Medicine Nephrology
DX: E61.1 Iron deficiency (principal); Z88.1 Allergy status to other antibiotic agents; Z88.8 Allergy status to other drugs, medicaments and biological substances
CPT/HCPCS: 96365; J1439

== ENCOUNTER → 2022-05-14 | Outpatient (REF) | payer MEDICARE, OTHER ==
[~2022-05-14] MED LIST changes: -ALBUTEROL SULFATE 2.5 MG/0.5 ML INH NEB SOLN INH PRN; -EPINEPHrine INJ 1 MG/ML 1ML AMP IM PRN; -FERRIC CARBOXYMALTOSE INJ 750 MG, VIAL MATE ADAPTER 1 EACH in NS 250 ML IV ONE; -NS 1,000 ML IV SCH; -diphenhydrAMINE 50MG/ML VIAL (J1200) IV PRN; -methylPREDNISolone 125MG 2ML VIAL IV PRN
== END ==
LOC: M WUC 11:59
PROVIDERS: ATTEND Physician Assistant
DX: N39.0 Urinary tract infection, site not specified (principal)

== ENCOUNTER → 2022-06-08 | Outpatient (REF) | payer MEDICARE, OTHER | LOC: M LAB REF 11:23 | PROVIDERS: ATTEND Internal Medicine | DX: R35.0 Frequency of micturition (principal) ==

== ENCOUNTER 2022-06-17 13:22 | Emergency (ER) | payer MEDICARE, OTHER ==
[~2022-06-17] VITALS: Ht 165.1 cm; Wt 65.9 kg
[2022-06-17] MEDS ORDERED: METH4PACK (13:32)
[2022-06-17] MEDS ORDERED: TIZA10TA (13:32)
[2022-06-17] MEDS ORDERED: VITA500T40 (13:32)
[2022-06-17] MEDS ORDERED: FAMO20TA5 (13:32)
[2022-06-17] MEDS ORDERED: NITR100C2 (13:32)
[2022-06-17] MEDS ORDERED: KETOROLAC 60MG 2ML VIAL IM ONE (16:40)
[2022-06-17] MEDS ORDERED: diazePAM 10 MG TAB PO ONE (16:40)
[2022-06-17] MEDS ORDERED: LIDOCAINE 5% (LIDODERM) PATCH TD ONE (16:40)
[2022-06-17] MEDS ORDERED: ASPE4PAD TOP (18:26)
[2022-06-17] MEDS ORDERED: ONDA4TAB6 PO (18:26)
[2022-06-17] MEDS ORDERED: TRAM50TA2 PO (18:26)
[2022-06-17] MEDS ORDERED: METH-1165 PO (18:26)
[2022-06-17 18:40] VITALS: BP 130/82
[2022-06-17] MEDS ORDERED: **NOTE PATIENT COMMENT** MISC XX SCH (21:00)
== END 2022-06-17 18:53 | disposition home or self-care (01) ==
LOC: M ED 13:22
DX: M51.27 Other intervertebral disc displacement, lumbosacral region (principal); M54.17 Radiculopathy, lumbosacral region; I12.9 Hypertensive chronic kidney disease with stage 1 through stage 4 chronic kidney disease, or unspecified chronic kidney disease; J45.909 Unspecified asthma, uncomplicated; N18.30 Chronic kidney disease, stage 3 unspecified; Z88.1 Allergy status to other antibiotic agents; Z88.8 Allergy status to other drugs, medicaments and biological substances; Z79.899 Other long term (current) drug therapy
CPT/HCPCS: 72131; 72192; 96372; 99283; J1885

== ENCOUNTER → 2022-11-18 | Outpatient (CLI) | payer MEDICARE, OTHER ==
[~2022-11-18] MED LIST changes: +ASPE4PAD TOP; +FAMO20TA5; +METH-1165 PO; +METH4PACK; +ONDA4TAB6 PO; +TIZA10TA; +TRAM50TA2 PO; +VITA500T40
== END ==
LOC: M WHC 07:16
PROVIDERS: ATTEND Internal Medicine
DX: Z12.31 Encounter for screening mammogram for malignant neoplasm of breast (principal)

== ENCOUNTER → 2022-11-19 | Outpatient (CLI) | payer MEDICARE, OTHER | LOC: M PLARAD 10:34 | PROVIDERS: ATTEND Orthopaedic Surgery | DX: M48.062 Spinal stenosis, lumbar region with neurogenic claudication (principal); M49.86 Spondylopathy in diseases classified elsewhere, lumbar region ==

== ENCOUNTER → 2022-12-14 | Outpatient (REF) | payer MEDICARE, OTHER ==
[2022-12-14 13:30] LABS: PERCENT SATURATION 41.4 % (13.2-45.0)
[2022-12-14 13:35] LABS: FERRITIN 295.9 NG/ML (7.3-270.7)
== END ==
LOC: M LAB REF 11:34
PROVIDERS: ATTEND Internal Medicine
DX: D50.9 Iron deficiency anemia, unspecified (principal); D64.9 Anemia, unspecified

== ENCOUNTER → 2023-06-23 | Outpatient (REF) | payer MEDICARE, OTHER ==
[2023-06-23 14:52] LABS: FERRITIN 292.1 NG/ML (7.3-270.7)
== END ==
LOC: M LAB REF 12:30
PROVIDERS: ATTEND Internal Medicine
DX: D50.9 Iron deficiency anemia, unspecified (principal)

== ENCOUNTER → 2023-09-22 | Outpatient (REF) | payer MEDICARE, OTHER ==
[~2023-09-22] MED LIST changes: +MECL-209 PO; -MECL1TAB31 PO
[2023-09-22 18:03] LABS: BACTERIA, URINE AUTO 3+ (NEGATIVE); MUCUS, URINE SMALL (NEGATIVE); RBC, URINE AUTO 0 /HPF (0-3); SQUAMOUS EPITHELIAL CELL UR AU 74 /HPF (0-6); WBC, URINE AUTO 175 /HPF (0-3)
== END ==
LOC: M LAB REF 17:09
PROVIDERS: ATTEND Internal Medicine Nephrology
DX: R82.81 Pyuria (principal)

== ENCOUNTER → 2023-12-03 | Outpatient (CLI) | payer MEDICARE, OTHER | LOC: M WHC 09:05 | PROVIDERS: ATTEND Internal Medicine | DX: Z12.31 Encounter for screening mammogram for malignant neoplasm of breast (principal) ==

== ENCOUNTER → 2024-01-20 | Outpatient (REF) | payer MEDICARE, OTHER ==
[~2024-01-20] MED LIST changes: +IRBE150T27 PO; -IRBE150T7 PO; +IRBE75TA11 PO; -IRBE75TA4 PO
[2024-01-20 15:05] LABS: FERRITIN 306.7 NG/ML (7.3-270.7)
== END ==
LOC: M LAB REF 12:44
PROVIDERS: ATTEND Internal Medicine
DX: D50.9 Iron deficiency anemia, unspecified (principal)

== ENCOUNTER → 2024-02-10 | Outpatient (REF) | payer MEDICARE, OTHER | LOC: M LAB REF 16:29 | PROVIDERS: ATTEND Internal Medicine | DX: R27.0 Ataxia, unspecified (principal); R42 Dizziness and giddiness ==

== ENCOUNTER → 2024-03-01 | Outpatient (CLI) | payer MEDICARE, OTHER ==
[~2024-03-01] MED LIST changes: +PROHANCE 279.3MG/ML 15ML VIAL As Ordered ONE
== END ==
LOC: M RAD 12:43
PROVIDERS: ATTEND Internal Medicine
DX: R27.0 Ataxia, unspecified (principal); R44.1 Visual hallucinations
CPT/HCPCS: 70544; 70553; A9576

== ENCOUNTER → 2024-07-04 | Outpatient (REF) | payer MEDICARE, OTHER ==
[~2024-07-04] MED LIST changes: +ONDA-282 PO; -ONDA4TAB6 PO; -PROHANCE 279.3MG/ML 15ML VIAL As Ordered ONE
== END ==
LOC: M LAB REF 17:25
PROVIDERS: ATTEND Internal Medicine
DX: R42 Dizziness and giddiness (principal)

== ENCOUNTER → 2024-08-21 | Outpatient (REF) | payer MEDICARE, OTHER ==
[2024-08-21 12:39] LABS: PERCENT SATURATION 25.5 % (13.2-45.0)
[2024-08-21 12:42] LABS: FERRITIN 261.2 NG/ML (7.3-270.7)
== END ==
LOC: M LAB REF 11:29
PROVIDERS: ATTEND Internal Medicine
DX: D50.9 Iron deficiency anemia, unspecified (principal)

== ENCOUNTER 2024-09-10 23:25 | Emergency (ER) | payer MEDICARE, OTHER ==
[~2024-09-10] VITALS: Ht 166.4 cm; Wt 67.7 kg
[2024-09-10 23:27] VITALS: BP 169/79; TEMP 98.8; O2SAT 99
[2024-09-11] MEDS: NS 500 ML IV ONE (00:20)
[2024-09-11] MEDS: KETOROLAC 30 MG/ML 1ML VIAL IV ONE (01:00)
[2024-09-11] MEDS: dexAMETHasone 20MG/5ML VIAL IV ONE (01:00)
[2024-09-11] MEDS: tiZANidine 4 MG TAB PO ONE (01:00)
[2024-09-11 01:37] LABS: BASO # 0.1 10^3/uL (0.0-0.2); BASO % 0.5 % (0.0-1.0); EOS # 0.1 10^3/uL (0.0-0.5); EOS % 1.3 % (0.0-3.0); HEMATOCRIT 37.4 % (36.0-47.0); HEMOGLOBIN 12.1 g/dl (12.0-15.5); LYMPH # 1.7 10^3/uL (1.5-5.0); LYMPH % 17.6 % (24.0-44.0); MEAN CORPUSCULAR HEMOGLOBIN 30.2 pg (27.0-33.0); MEAN CORPUSCULAR HGB CONC 32.4 g/dl (32.0-36.5); MEAN CORPUSCULAR VOLUME 93.3 fl (80.0-96.0); MONO # 0.7 10^3/uL (0.0-0.8); MONO % 7.4 % (2.0-8.0); NEUTROPHILS # 7.1 10^3/uL (1.5-8.5); NEUTROPHILS % 72.9 % (36.0-66.0); PLATELET COUNT, AUTOMATED 304 10^3/uL (150-450); RED BLOOD COUNT 4.01 10^6/uL (4.00-5.40); WHITE BLOOD COUNT 9.8 10^3/uL (4.0-10.0)
[2024-09-11 01:53] LABS: ALBUMIN 3.9 G/DL (3.2-5.2); BILIRUBIN,TOTAL 0.4 MG/DL (0.3-1.2); CALCIUM LEVEL 9.4 MG/DL (8.3-10.6); CREATININE FOR GFR 1.63 MG/DL (0.55-1.30); GLOMERULAR FILTRATION RATE 33.1 (>39); POTASSIUM SERUM 4.2 MMOL/L (3.5-5.1); TOTAL PROTEIN 7.2 G/DL (5.7-8.2)
[2024-09-11] MEDS ORDERED: KETO10TAB PO (05:16)
[2024-09-11] MEDS ORDERED: TIZA10TA PO (05:16)
== END 2024-09-11 05:24 | disposition home or self-care (01) ==
LOC: M ED 23:25
DX: M54.50 Low back pain, unspecified (principal); K82.9 Disease of gallbladder, unspecified; M48.061 Spinal stenosis, lumbar region without neurogenic claudication; Z88.1 Allergy status to other antibiotic agents; Z88.8 Allergy status to other drugs, medicaments and biological substances; Z79.02 Long term (current) use of antithrombotics/antiplatelets; Z79.83 Long term (current) use of bisphosphonates; Z79.899 Other long term (current) drug therapy
CPT/HCPCS: 72131; 80053; 85025; 96374; 99283; J1100; J1885

== ENCOUNTER → 2025-03-27 | Outpatient (CLI) | payer MEDICARE, OTHER ==
[~2025-03-27] MED LIST changes: +BUPR-670 PO; +BUPR150T15 PO; -BUPR1TAB52 PO; -BUPR1TAB53 PO; +KETO10TAB PO; +TIZA10TA PO
== END ==
LOC: M WHC 10:14
PROVIDERS: ATTEND Internal Medicine
DX: Z12.31 Encounter for screening mammogram for malignant neoplasm of breast (principal)

== ENCOUNTER → 2025-06-25 | Outpatient (REF) | payer MEDICARE, OTHER | LOC: M LAB REF 16:20 | PROVIDERS: ATTEND Surgery | DX: C44.612 Basal cell carcinoma of skin of right upper limb, including shoulder (principal) ==

== ENCOUNTER → 2025-06-29 | Outpatient (CLI) | payer MEDICARE, OTHER | LOC: M PLAIMG 12:56 | PROVIDERS: ATTEND Orthopaedic Surgery | DX: M51.27 Other intervertebral disc displacement, lumbosacral region (principal); M48.061 Spinal stenosis, lumbar region without neurogenic claudication; M24.28 Disorder of ligament, vertebrae ==

== ENCOUNTER → 2025-08-06 | Outpatient (REF) | payer MEDICARE, OTHER | LOC: M LAB REF 16:32 | PROVIDERS: ATTEND Surgery | DX: C44.612 Basal cell carcinoma of skin of right upper limb, including shoulder (principal) ==

== ENCOUNTER → 2025-08-30 | Outpatient (REF) | payer MEDICARE, OTHER ==
[2025-08-30 14:11] LABS: IRON (FE) 66.0 UG/DL (50-170); PERCENT SATURATION 25.2 % (13.2-45.0)
== END ==
LOC: M LAB REF 12:28
PROVIDERS: ATTEND Internal Medicine
DX: N18.32 Chronic kidney disease, stage 3b (principal)